=== PATIENT | female | born 1995 | race Two or more races ===

== ENCOUNTER 2024-05-25 18:57 | Emergency (ER) | payer MEDICAID, SELFPAY ==
[2024-05-25 19:41] VITALS: BP 174/98; PULSE 86; RESP 20; TEMP 36.7; O2SAT 100; BMI 36.5
--- NOTE | 2024-05-25 19:54 | XR_ITS ---
Examination: Abdomen sonogram, Limited Date and time of exam: May 25, 2024 1116 hrs. Indications: Epigastric pain beginning 4 hours ago Technique: Real-time mason scale transabdominal sonographic images of the upper abdomen obtained. Findings: Dense shadowing from the gallbladder Gallbladder wall 0.55 cm Common bile duct 0.2 cm Pancreatic head 3.9 cm Liver 13.5 cm smooth contour Normal hepatopedal portal venous flow Patent IVC Impression: Findings most consistent with contracted gallbladder around gallstones Abnormal thickening of the gallbladder wall 0.55 cm, consider HIDA scan or MRCP follow-up to exclude cholecystitis Normal common bile duct
--- NOTE | 2024-05-25 19:55 | PD.EDRME ---
Rapid Medical Screening Exam RME Arrival date/time: 05/25/24 18:57 29-year-old female presents emergency department complaining of epigastric pain that radiates to upper back after eating dinner. Chief Complaint: Abdominal Pain Time Seen by Provider: 05/25/24 19:49 Vital signs: Vital Signs Temperature 98.0 F 05/25/24 19:41 Pulse Rate 86 05/25/24 19:41 Respiratory Rate 20 05/25/24 19:41 Blood Pressure 174/98 H 05/25/24 19:41 Pulse Oximetry (%) 100 05/25/24 19:41 Oxygen Delivery Method Room Air 05/25/24 19:41 Vital signs reviewed by provider: Yes
[2024-05-25] MEDS: KETOROLAC INJ 60 MG/2 ML VIAL 30 MG IM (20:03)
[2024-05-25 20:42] LABS: Collection Type, Urine Clean Catch
[2024-05-25 20:46] LABS: Basophils % (Auto) 0 % (0-2.5); Eosinophils # (Auto) 0.2 Thou/mm3 (0.0-0.5); Eosinophils % (Auto) 2 % (0-10); Hematocrit 40.4 % (36.0-46.0); Immature Granulocytes % (Auto) 1 % (0-0); Immature Granulocytes Auto 0.05 Thou/mm3 (0.00-0.00); Lymphocytes # (Auto) 1.9 Thou/mm3 (1.0-4.8); Lymphocytes % (Auto) 19 % (10-50); Mean Corpuscular HGB Conc 34.7 g/dl (31.0-37.0); Mean Corpuscular Hemoglobin 28.5 pg (25.0-35.0); Mean Corpuscular Volume 82 fL (80-100); Monocytes # (Auto) 0.5 Thou/mm3 (0.0-0.8); Monocytes % (Auto) 5 % (0-12); Neutrophils # (Auto) 7.5 Thou/mm3 (1.8-7.7); Neutrophils % (Auto) 74 % (37-80); Nucleated Red Blood Cell % 0 /100 WBC (0); Platelet Count 216 Thou/mm3 (140-440); RDW Standard Deviation 38.2 fL (36.4-46.3); Red Blood Count 4.91 Miln/mm3 (4.00-5.20); White Blood Count 10.1 Thou/mm3 (3.6-11.0)
[2024-05-25 20:56] LABS: Bilirubin,Urine Negative (Negative); Blood,Urine 1+ (Negative); Clarity,Urine Clear (Clear/Hazy); Color,Urine Yellow (Lt Yel-Yel); Culture Indicated,Urine Not Indicated; Glucose, Urine Negative (Negative); Hyaline Casts,Urine < 1 /hpf (0-1); Ketones,Urine Trace (Negative); Leukocyte Esterase,Urine Negative (Negative); Nitrite,Urine Negative (Negative); Protein,Urine 3+ (Neg - Trace); RBC,Urine 3 /hpf (0-3); Specific Gravity,Urine 1.036 (1.001-1.035); Squamous Epithelial Cell,Urine 4 /hpf (0-5); Urobilinogen,Urine Negative mg/dL (0.0-1.0); WBC,Urine 2 /hpf (0-5)
[2024-05-25 21:07] LABS: Alanine Aminotransferase 16 U/L (10-49); Albumin, Serum 4.6 gm/dL (3.5-5.0); Albumin/Globulin Ratio 1.6 (1.2-2.2); Alkaline Phosphatase 85 U/L (46-116); Anion Gap 4 (7-16); Aspartate Amino Transferase 13 U/L (0-34); BUN/Creatinine Ratio 14 Ratio (12-20); Bilirubin,Total 0.6 mg/dL (0.3-1.2); Blood Urea Nitrogen 11 mg/dL (9-23); Calcium 9.4 mg/dL (8.3-10.6); Calcium (Corrected) 9.4 mg/dL (8.5-10.1); Carbon Dioxide 25.6 mMol/L (20.0-31.0); Chloride 104 mMol/L (98-107); Creatinine (Component) 0.8 mg/dL (0.6-1.3); Estimated Creatinine Clearance 98.5 mL/min (>60); Globulin 2.9 gm/dL (2.3-3.5); Glucose 134 mg/dL (74-106); Lipase 51 U/L (12-53); Osmolality,Calculated 269 (275-295); Sodium 134 mMol/L (136-145); Total Protein 7.5 gm/dL (5.7-8.2); eGFR > 60 See Note
[2024-05-25 22:22] LABS: HCG,Qualitative Serum Negative
--- NOTE | 2024-05-26 00:01 | EDNOTE_ITS ---
<Statement entered by Maria Eugenia Angel MD - 05/26/24 19:43> As co-signing physician, I was present and available for consult prn. I concur with the plan and care as documented by the midlevel provider. ED Abdominal Pain RME/HPI General Chief Complaint: Abdominal Pain Stated complaint: epigastric pain just started now Time seen by provider: 05/25/24 19:49 Arrival date/time: 05/25/24 18:57 29-year-old female presents emergency department complaining of epigastric pain that radiates to upper back after eating dinner. Patient denies any fever, chills, nausea vomiting, diarrhea, or any other associated symptom. Source: patient Mode of arrival: ambulatory Limitations: no limitations RME / HPI RME / HPI narrative: 05/25/24 18:57 29-year-old female presents emergency department complaining of epigastric pain that radiates to upper back after eating dinner. Related Data Home Medications ?Medication ?Instructions ?Recorded ?Confirmed metformin 500 mg tablet 500 mg PO BID 09/01/23 09/06/23 vit no.95-ferrous 1 tab PO QDAY 09/01/23 09/06/23 fumarate 28 mg-folic acid 800 mcg tablet () Previous Rx's ?Medication ?Instructions ?Recorded ibuprofen 600 mg tablet 600 mg PO Q8H PRN pain #20 tabs 05/26/24 Allergies Allergy/AdvReac Type Severity Reaction Status Date / Time shrimp Allergy Intermediate SWELLING Verified 05/25/24 18:58 Review of Systems Review of Systems Systems Reviewed: All systems reviewed, normal except as documented Constitutional Constitutional: Reports system reviewed and no additional complaints, except as documented, Denies body ache(s), Denies chills and Denies fever(s) Eyes Eyes: Reports system reviewed and no additional complaints, except as documented and Denies change in vision ENT Ears, Nose, Mouth, and Throat: Reports system reviewed and no additional complaints, except as documented, Denies disequilibrium, Denies dizziness, Denies sore throat and Denies vertigo Cardiovascular Cardiovascular: Reports system reviewed and no additional complaints, except as documented, Denies chest pain and Denies dyspnea Respiratory Respiratory: Reports system reviewed and no additional complaints, except as documented, Denies chest congestion, Denies cough and Denies dyspnea Gastrointestinal Gastrointestinal: Reports system reviewed and no additional complaints, except as documented, Reports abdominal pain, Denies nausea and Denies vomiting Musculoskeletal Musculoskeletal: Reports system reviewed and no additional complaints, except as documented, Denies abnormal gait and Denies arthralgias Integumentary/Breasts Skin/Breast: Reports system reviewed and no additional complaints, except as documented, Denies erythema, Denies rash and Denies wounds Neurologic Neurologic: Reports system reviewed and no additional complaints, except as documented, Denies abnormal gait, Denies disequilibrium, Denies dizziness and Denies vertigo Past Medical History Past Medical History NEUROLOGIC: Negative Neurological Disorders or Seizures CARDIAC: Positive Cardiac Disorders and Hypertension; Negative Congestive Heart Failure, Edema, Cellulitis or Varicose Veins RESPIRATORY: Positive Asthma; Negative Chronic Obstructive Pulmonary Disease (COPD) GASTROINTESTINAL: Positive Gastrointestinal Disorders and Obesity; Negative Hepatitis GENITOURINARY: Negative Genitourinary Disorders or Renal Disease REPRODUCTIVE: Positive Previous Pregnancies MUSCULOSKELETAL: Negative Musculoskeletal Disorders ENDOCRINE: Negative Endocrine Disorders, Diabetes Mellitus Type 1 or Diabetes Mellitus Type 2 HEMATOLOGIC: Negative Blood Disorders OTHER HISTORY: Negative Hospitalization, Autoimmune Disease, Shingles, Falls, Blood Transfusions, Blood Transfusion Reaction, Anesthesia Reactions, Chemotherapy, Radiation Therapy, MRSA, Chicken Pox, Measles, Mumps or Cancer Family History FAMILY HISTORY: Negative Family Psychiatric Problems, Family Respiratory Disorders, Family Cardiac Disorders, Family Gastrointestinal Problems, Family Cancer, Family Surgery or Family Anesthesia Reaction Surgical History SURGICAL: Positive Section; Negative Pacemaker Social History SMOKING STATUS: Never smoker ED Exam General Limitations: Present no limitations General appearance: Present alert and in no apparent distress Head Head exam: Present atraumatic Eye Eye exam: Present normal appearance, PERRL and EOMI ENT ENT exam: Present normal exam, normal oropharynx and mucous membranes moist Neck Neck exam: Present normal inspection, full ROM and trachea midline Chest Chest inspection: Present normal inspection and symmetric chest wall rise Respiratory Respiratory exam: Present normal lung sounds bilaterally Cardiovascular Cardiovascular exam: Present regular rate, normal rhythm and normal heart sounds Abdominal Exam Abdominal exam: Present soft, tenderness and normal bowel sounds Abdominal tenderness: Present epigastrium Extremities Exam Extremities exam: Present normal inspection and full ROM Back Exam Back exam: Present normal inspection and full ROM Neurological Exam Neurological exam: Present alert, oriented X3 and CN II-XII intact Psychiatric Psychiatric exam: Present normal affect and normal mood Skin Skin exam: Present warm, dry, intact and normal color Course Quality Measures none Orders Category Date Time Status US gall bladder Stat Exams 05/25/24 19:54 Completed CBC Stat Lab 05/25/24 20:29 Completed CMP [Comprehensive Metabolic Panel] Stat Lab 05/25/24 20:29 Completed HCG,Qualitative Serum Stat Lab 05/25/24 20:29 Completed Lipase Stat Lab 05/25/24 20:29 Completed Urinalysis, C/S if Indicated Stat Lab 05/25/24 20:18 Completed Ketorolac Inj [Toradol Inj] Med 05/25/24 19:55 Discontinued 30 mg IM X1 ONE Vital Signs Vital signs: Vital Signs Temperature 98.0 F 05/25/24 19:41 Pulse Rate 86 05/25/24 19:41 Respiratory Rate 20 05/25/24 19:41 Blood Pressure 174/98 H 05/25/24 19:41 Pulse Oximetry (%) 100 05/25/24 19:41 Oxygen Delivery Method Room Air 05/25/24 19:41 100% room air within normal limits Abdominal Pain MDM MDM Narrative MDM Narrative:: 29-year-old female presents emergency department complaining of epigastric pain that radiates to upper back after eating dinner. Patient denies any fever, chills, nausea vomiting, diarrhea, or any other associated symptom. CBC was unremarkable for leukocytosis. CMP was unremarkable for any elevated LFTs and patient had a normal lipase. Urinalysis was unremarkable. Ultrasound findings gallstones. Patient appears nontoxic and is hemodynamically stable. Patient discharged and instructed to follow-up with primary care provider and request referral to general surgeon. Instructed patient to return to emergency department immediately if worsening of pain or worsening symptoms. Patient data External records reviewed:: [facility] previous records Clinical information provided by:: patient Social determinants that could affect healthcare access:: none Patient has the following chronic illnesses:: See chart How is presenting disease/condition affected by chronic disease/condition?: uneffected by Evaluation data The following diagnostics were reviewed and interpreted by me:: lab results and radiology exam(s) Lab and/or radiology exams considered but not ordered:: Ordered Interpretation Summary: Interpreted by me Medications / Prescriptions Medications or Prescriptions considered but not ordered:: Ordered Medication administrations:: Medication Administration History Discontinued Medications Ketorolac Tromethamine (Ketorolac Inj 60 Mg/2 Ml Vial) 30 mg IM X1 ONE Stop: 05/25/24 19:56 Last Admin: 05/25/24 20:03 Dose: 30 mg Documented By: OA Given Consultations Consultation(s) initiated? (list below): No Diagnosis Differential diagnosis abdominal pain: abdominal pain, acute appendicitis, calculus of kidney, constipation, diverticulitis, endometriosis, gastroenteritis, pancreatitis and small bowel obstruction Most likely diagnosis given after review of the tests above:: Gallstones Admission Indicated Admission indicated?: not indicated Admission Request Was there a request for admission?: No Disposition Plan Disposition Plan: Discharge Discharge Attestation Discharge Attestation: The patient and all family members were given an opportunity to ask questions and understood the discharge instructions. Discharge instructions specifically effects, indications for sooner follow up or return to the emergency department, and the expected course of current diagnosis. Patient condition: Stable Discharge Plan Plan Patient Disposition: HOME (Self Care) Disposition Comment: Stable Prescriptions/Referrals Prescriptions/Med Rec: New ibuprofen 600 mg tablet 600 mg PO Q8H PRN (Reason: pain) Qty: 20 0RF No Action metformin 500 mg Tablet 500 mg PO BID PNV cmb#95-ferrous fumarate-FA [] 28 mg iron- 800 mcg Tablet 1 tab PO QDAY Referrals: No Primary/Family,Physician [Primary Care Provider] - In 1 week Problem List Clinical Impression: Gallstones Patient/Caregiver Discharge Instructions Discharge Activity: activity as tolerated Education Materials: ED Gallstones with Biliary Colic Additional Instructions: Take medication as needed for pain. Follow-up with primary care provider and request referral to general surgeon if symptoms persist. Return to the emergency department for any worsening symptoms or as needed. Print Language: Latvian Stand Alone Forms: Carla Award Info., Patient Portal Info Letter OWEN/DAVID Supervising Physician PA/DAVID Supervising Physician: Dr. Angel
[2024-05-26 00:13] VITALS: BP 148/76; PULSE 76; RESP 18; TEMP 36.7; O2SAT 99
== END 2024-05-26 00:15 | disposition home or self-care (01) ==
PROVIDERS: Emergency Provider Emergency Medicine
DX: K80.20 Calculus of gallbladder without cholecystitis without obstruction (principal)
CPT/HCPCS: 36415; 76705; 80053; 81001; 83690; 84703; 85025; 96372; 99284; J1885

== ENCOUNTER 2024-06-13 16:01 | Emergency (ER) | payer MEDICAID, SELFPAY ==
[2024-06-13 16:01] VITALS: BMI 36.6
--- NOTE | 2024-06-13 16:32 | PC.NURSE ---
PT CAME TO TRIAGE DESK TO SAY I NEED TO CHECK OUT. MY PAIN IS GONE AND THERE ARE TOO MANY PEOPLE. SIGNED AMA FORM AND LEFT
== END 2024-06-13 16:32 | disposition left against medical advice (07) ==
LOC: SERX 16:42
PROVIDERS: Emergency Provider Emergency Medicine
DX: Z53.21 Procedure and treatment not carried out due to patient leaving prior to being seen by health care provider (principal)